=== PATIENT | male | born 1930 | race Caucasian/White ===

== ENCOUNTER 2016-11-11 13:20 | Emergency (ER) | payer MEDICARE, OTHER, MEDICAID ==
[2005-08-08 18:13] VITALS: BP 96/56
[~2016-11-11] VITALS: Ht 175.3 cm; Wt 75.0 kg
[~2016-11-11 13:20] MED LIST: ASPIR-LOW81 MG PO; ASPIR-LOX325 MG PO; ASPIRIN 32325 MG/TAB PO; ASPIRIN 81M81 MG/TA2 PO; ATIVAN 0.50.5 MG/TAB PO; CELEXA10 MG PO; CENTRUM SILVER1 TA1 PO; CLEOCIN HCL300 MG PO; DIGOXIN0.125 MG PO; DITROPAN 5MG TAB5 MG PO; DULCOLAX S10 MG/SUPP RC; FLOMAX 0.40.4 MG/CAP PO; GABAPENTIN300 M1 PO; LEVAQUIN 5500 MG/TA1 PO; MIRALAX PA17 GM/Dose PO; NEURONTIN300 MG/CAP PO; NEURONTIN400 MG/CAP PO; NYSTATIN CREAM15 GM TP; PLAVIX 75MG TAB75 MG PO; REMERON 15M15 MG/TA1 PO; ROCEPHIN2 GM IM; TAMIFLU 75MG75 MG PO; TYLENOL ARTHRI650 M1 PO; TYLENOL SU650 MG/SUP RC; ULTRAM 50MG TAB50 MG PO; ULTRAM ER100 MG PO; VITAMIN C500 MG PO; ZOFRAN 4MG T4 MG/TAB PO
[2016-11-11 13:27] VITALS: TEMP 97.7
[2016-11-11 13:47] LABS: BASO % 0.3 % (0.0-2.0); EOS % 0.1 % (0-4.0); GRAN # 7.2 (1.4-6.5); GRAN % 78.9 % (42.2-75.2); LYMPH # 1.2 (1.2-3.4); LYMPH % 12.6 % (20.0-51.0); MEAN CELL VOLUME 103 fl (80.0-100.0); MEAN CORPUSCULAR HGB CONC 33 g/dl (33.0-37.0); MEAN PLATELET VOLUME 12.1 fl (7.4-10.4); MONO # 0.7 (0.1-0.6); MONO % 7.9 % (1.7-9.3); PLATELET COUNT 131 K/mm3 (130-400); RED BLOOD COUNT 3.15 M/mm3 (4.20-5.60); REDCELL DISTRIBUTION WIDTH-CV 14.3 % (11.5-14.5); WHITE BLOOD COUNT 9.2 K/mm3 (4.8-10.8)
[2016-11-11 13:54] LABS: HEMATOCRIT 32.5 % (42.0-52.0); HEMOGLOBIN 10.7 g/dl (13.5-18.0); MEAN CORPUSCULAR HEMOGLOBIN 34 pg (27.0-31.0)
[2016-11-11 13:58] LABS: ADJUSTED CALCIUM 9.3 mg/dL (8.4-10.2); ALBUMIN 2.9 gm/dL (3.5-5.0); BILIRUBIN,TOTAL 4.6 mg/dL (0.0-1.0); C-REACTIVE PROTEIN 7.4 mg/dL (0.0-0.9); CALCIUM 8.4 mg/dL (8.4-10.2); CREATININE, serum 1.25 mg/dL (0.66-1.25); POTASSIUM 4.7 mmol/L (3.4-5.0); TOTAL PROTEIN 5.9 gm/dL (6.4-8.2)
[2016-11-11 15:07] LABS: PH 7 (5-8); URINE APPEARANCE Cloudy; URINE BACTERIA Occasional /hpf; URINE BILIRUBIN Positive (NEGATIVE); URINE BLOOD Negative (NEGATIVE); URINE COLOR Amber; URINE GLUCOSE Negative (NEGATIVE); URINE KETONE Negative (NEGATIVE); URINE UROBILINOGEN >=4.0 mg/dL (NEGATIVE); URINE WBC >50 /hpf
[2016-11-11] MEDS ORDERED: AMOXICILLIN 8751 TAB PO (15:33)
[2016-11-11 15:47] VITALS: BP 77/48; PULSE 61
== END 2016-11-11 15:57 | disposition home or self-care (01) ==
LOC: COL.ER 13:20
PROVIDERS: Family Medicine
DX: N39.0 Urinary tract infection, site not specified (principal); E86.0 Dehydration; B96.4 Proteus (mirabilis) (morganii) as the cause of diseases classified elsewhere; F03.90 Unspecified dementia, unspecified severity, without behavioral disturbance, psychotic disturbance, mood disturbance, and anxiety; I95.9 Hypotension, unspecified; Z66 Do not resuscitate; R16.0 Hepatomegaly, not elsewhere classified
CPT/HCPCS: J0696; J7030; Q9967